=== PATIENT | male | born 1975 | race Caucasian/White ===

== ENCOUNTER 2017-08-22 09:39 | Emergency (ER) | payer BC ==
[2017-08-22] MEDS ORDERED: Clindamycin CAP* 150 MG PO ONE (10:24)
--- NOTE | 2017-08-22 10:33 | ED ---
Skin Complaint - HPI Summary HPI Summary: Pt here w/ infection of Lt knee. Started as pimple w/ arthur over patella on Friday - this ruptured and small amount of purulent drainage + plus was extruded. Area has been getting more red, swollen, hot and painful since - starting to spread. Denies fever, chills, numbness, tingling, weakness and has FROM knee joint w/o pain. Has not been taking anything orally for pain - has been trying ice, topical anbx ointment and epsom salt soaks w/o relief. Reports he has been nauseous from pain when he stands on leg and fluids collects here - otherwise, no nausea/vomiting. Pain is difficult to tolerate at night although he reports it may be getting a little better past 2 days. No trauma to the area and no h/o MRSA/Staph. Unsure if tetanus is UTD. - History of Current Complaint Chief Complaint: EDRashSkinAbscess Time Seen by Provider: 08/22/17 10:15 Stated Complaint: LT KNEE SKIN RASH Hx Obtained From: Patient Pain Intensity: 10 - Allergy/Home Medications Allergies/Adverse Reactions: Allergies Allergy/AdvReac Type Severity Reaction Status Date / Time Naproxen [From Naprosyn] Allergy Intermediate Swelling Verified 08/22/17 10:03 PMH/Surg Hx/FS Hx/Imm Hx Previously Healthy: Yes Endocrine/Hematology History: Denies: Hx Anticoagulant Therapy, Hx Blood Disorders, Autoimmune Disease Infectious Disease History: No Infectious Disease History: Denies: Traveled Outside the [place] in Last 30 Days - Family History Known Family History: Positive: None - Social History 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 Negative: Abdominal Pain, Vomiting, Diarrhea Positive: no symptoms reported Positive: Edema. Negative: Arthralgia, Myalgia, Decreased ROM Skin: Other - Lt knee redness Neurological: Negative Psychological: Normal All Other Systems Reviewed And Are Negative: Yes Physical Exam Triage Information Reviewed: Yes Vital Signs On Initial Exam: Initial Vitals Temp Pulse Resp BP Pulse Ox 98.9 F 80 16 103/83 98 12/08/17 10:03 08/22/17 10:03 08/22/17 10:03 08/22/17 10:03 08/22/17 10:03 Vital Signs Reviewed: Yes Appearance: Positive: Well-Appearing, No Pain Distress, Well-Nourished Skin: Positive: Warm, Dry - Lt knee w/ dark erythema over patella (about 4cm - indurated - pinpoint area of scab which pt reports was initial site of concern) w/ peripheral erythema about 12 cm and even marketing area manager erythema expanding up thigh (distal 1/3) and down to calf (proximal 1/4 way down) - does not circumvent the knee - no fluctance, no vesicles, no skin breakdown - TTP, fever to touch; FROM knee w/o pain or restriction Head/Face: Positive: Normal Head/Face Inspection Eyes: Positive: EOMI ENT: Positive: Hearing grossly normal Respiratory/Lung Sounds: Positive: Breath Sounds Present Cardiovascular: Positive: Pulses are Symmetrical in both Upper and Lower Extremities. Negative: Leg Edema Left, Leg Edema Right Musculoskeletal: Positive: Normal, Strength/ROM Intact Neurological: Positive: Normal, Sensory/Motor Intact, Alert, Oriented to Person Place, Time, CN Intact II-III Psychiatric: Positive: Normal Diagnostics - Vital Signs Vital Signs Temp Pulse Resp BP Pulse Ox 08/22/17 10:03 98.9 F 80 16 103/83 98 - Laboratory Result Diagrams: 08/22/17 10:35 Lab Statement: Any lab studies that have been ordered have been reviewed, and results considered in the medical decision making process. Course/Dx - Course Course Of Treatment: Pt presents w/ cellulitis of the Lt knee - started as pimple that ruptured earlier in the week. Swelling, fever to skin and pain have developed since despite efforts to tx w/ ice and epsom salt soaks. Denies fever , chills, N/V/D, fatigue. Baseline labs drawn and tx'd w/ PO anbx for cellulitis. Advised to f/u w/ PCP Friday for recheck of wound. Danger s/sx of when to return provided. Pt agrees w/ plan. Offered ibuprofen for pain relief today - he reports he can take this at home and declines this or other pain medication. When asked about naproxen allergy, he reports his forearms swelled - has had ibuprofen since w/o issues. - Diagnoses Provider Diagnoses: Cellulitis of left knee Discharge - Discharge Plan Condition: Stable Disposition: HOME Patient Education Materials: Cellulitis (ED) Referrals: No Primary Care Phys,NOPCP [Primary Care Provider] - [facility] [Outside]
[2017-08-22 10:48] LABS: Hematocrit 44 % (42-52); Hemoglobin 15.1 g/dl (14.0-18.0); Mean Corpuscular HGB Conc 35 g/dl (31-36); Mean Corpuscular Hemoglobin 32 pg (27-31); Mean Corpuscular Volume 93 fL (80-94); Mean Platelet Volume 8 um3 (7.4-10.4); Red Cell Distribution Width 12 % (10.5-15); White Blood Count 10.7 10^3/ul (3.5-10.8)
[2017-08-22 11:04] LABS: Albumin 4.4 g/dL (3.2-5.2); BUN/Creatinine Ratio 20.7 (8-20); C Reactive Protein 58.57 mg/L (< 5.00); Calcium 9.9 mg/dL (8.6-10.3); EGFR Non-African American 97.2 (>60); Globulin 3.3 g/dL (2-4); Potassium 4.2 mmol/L (3.5-5.0); Total Bilirubin 0.9 mg/dL (0.2-1.0); Total Protein 7.7 g/dL (6.4-8.9)
[2017-08-22 11:24] LABS: Erythrocyte Sed Rate 24 mm/Hr (0-14)
[2017-08-22 11:29] VITALS: BP 118/73
== END 2017-08-22 11:26 | disposition home or self-care (01) ==
LOC: ED 09:39
DX: L03.116 Cellulitis of left lower limb (principal)
CPT/HCPCS: 36415; 80053; 83605; 85025; 85652; 86140; 99282; A9270-GY

== ENCOUNTER 2019-04-28 02:01 | Emergency (ER) | payer BC ==
[2019-04-28 02:44] LABS: ABS Eosinophils 0.3 10^3/ul (0-0.6); ABS Lymphocytes 1.4 10^3/ul (1.0-4.8); ABS Monocytes 0.4 10^3/ul (0-0.8); ABS Neutrophils 3.8 10^3/ul (1.5-7.7); Eosinophil % 5.6 %; Hematocrit 43 % (42-52); Hemoglobin 14.9 g/dL (14.0-18.0); Lymphocyte % 23.3 %; Mean Corpuscular HGB Conc 35 g/dL (31-36); Mean Corpuscular Hemoglobin 32 pg (27-31); Mean Corpuscular Volume 92 fL (80-94); Mean Platelet Volume 7.7 fL (7.4-10.4); Platelet Count 189 10^3/uL (150-450); Red Cell Distribution Width 12 % (10-15)
[2019-04-28 02:44] LABS: Urine Appearance Clear; Urine Bacteria Absent (Absent); Urine Bilirubin Negative (Negative); Urine Blood 1+ (Negative); Urine Color Yellow; Urine Glucose Negative (Negative); Urine Ketones 1+ (Negative); Urine Nitrite Negative (Negative); Urine Protein Negative (Negative); Urine Red Blood Cell Trace(0-2/hpf) (Absent); Urine Specific Gravity 1.014 (1.010-1.030); Urine Urobilinogen Negative (Negative); Urine White Blood Cell Absent (Absent)
[2019-04-28 03:03] LABS: Urine Benzodiazepine Screen None Detected (None Detect); Urine Opiates Screen None Detected (None Detect)
[2019-04-28 03:06] LABS: ALT 26 U/L (7-52); AST 23 U/L (13-39); Albumin 4.7 g/dL (3.2-5.2); Albumin/Globulin Ratio 1.6 (1-3); Alkaline Phosphatase 38 U/L (34-104); Anion Gap 9 mmol/L (2-11); BUN/Creatinine Ratio 18.2 (8-20); Blood Urea Nitrogen 16 mg/dL (6-24); CO2 Carbon Dioxide 25 mmol/L (22-32); Calcium 10.1 mg/dL (8.6-10.3); Chloride 100 mmol/L (101-111); EGFR African American 115.5 (>60); EGFR Non-African American 95.4 (>60); Glucose 102 mg/dL (70-100); Potassium 3.6 mmol/L (3.5-5.0); Sodium 134 mmol/L (135-145); Total Protein 7.7 g/dL (6.4-8.9)
[2019-04-28 03:16] LABS: Acetaminophen < 15 mcg/mL; Alcohol < 10 mg/dL (<10); Salicylate < 2.50 mg/dL (<30)
[2019-04-28 03:30] LABS: TSH (Thyroid Stimulating Horm) 2.35 mcIU/mL (0.34-5.60)
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
--- NOTE | 2019-04-28 09:12 | ED ---
Progress - Progress Note Progress Note: Patient signed out from Dr. Vila upon shift change 04/28/19 at 07:00 awaiting mental health evaluation - awaiting collateral - and pending disposition. Re-Evaluation - Re-Evaluation First Eval Re-Evaluation Time: 09:07 Comment: Dr. Alexis, psychiatry, reports that patient will be discharged home with follow up from outpatient psychiatry. Mental health apartment leasing manager and Dr. Alexis spoke with patient's , who states that she feels safe and comfortable with the patient coming home and that she and the patient are in couples therapy. Will discharge patient Course/Dx - Diagnoses Provider Diagnoses: Unspecified mood [affective] disorder Discharge - Sign-Out/Discharge Documenting (check all that apply): Patient Departure - Discharge Receiving patient FROM: Willy Vila Patient Received Moderate/Deep Sedation with Procedure: No - Discharge Plan Condition: Stable Disposition: HOME Referrals: No Primary Care Phys,NOPCP [Primary Care Provider] - - Billing Disposition and Condition Condition: STABLE Disposition: Home - Attestation Statements Document Initiated by Scribe: Yes Documenting Scribe: Cyndie Back Provider For Whom Zeferinoe is Documenting (Include Credential): Radha Romero MD Scribe Attestation: I, Cyndie Back, scribed for Radha Romero MD on 04/28/19 at 0913. Scribe Documentation Reviewed: Yes Provider Attestation: The documentation as recorded by the Cyndie osullivan accurately reflects the service I personally performed and the decisions made by me, Radha Romero MD Status of Scribe Document: Viewed
[2019-04-28 09:49] VITALS: BP 115/72
== END 2019-04-28 09:47 | disposition home or self-care (01) ==
LOC: ED 02:01
DX: F39 Unspecified mood [affective] disorder (principal); Z88.6 Allergy status to analgesic agent
CPT/HCPCS: 36415; 80053; 80307; 80320; 80329; 81003; 81015; 84443; 85025; 99284; G0480